=== PATIENT | male | born 1955 | race African-American/Black ===

== ENCOUNTER 2017-01-16 15:15 | Emergency (ER) | payer SELFPAY ==
[2017-01-16] MEDS ORDERED: LIDO:MAALOX:BENADRYL 1:1:1 180 ML BOTTLE. PO STA ×3 (16:02→16:57)
[2017-01-16 16:12] LABS: BASO # 0.1 x10^3/uL (0.0-0.2); BASO % 0 % (0-3); EOS % 1 % (0-3); HEMATOCRIT 48.3 % (39.0-53.0); LYMPH # 2.7 x10^3/uL (1.0-4.8); LYMPH % 13 % (24-48); MEAN CORPUSCULAR HEMOGLOBIN 27 pg (25-35); MEAN CORPUSCULAR HGB CONC 33 g/dL (31-37); MEAN CORPUSCULAR VOLUME 81 fL (79-100); MONO % 8 % (0-9); NEUT % 78 % (31-73); PLATELET COUNT 291 x10^3/uL (140-400); RED BLOOD COUNT 5.93 x10^6/uL (4.30-5.70); RED CELL DISTRIBUTION WIDTH 14.8 % (11.5-14.5); WHITE BLOOD COUNT 19.8 x10^3/uL (4.0-11.0)
--- NOTE | 2017-01-16 16:12 | PHYS DOC ---
Past Medical History Past Medical History: Hypertension Past Surgical History: No Surgical History Alcohol Use: None Drug Use: None Adult General Chief Complaint Chief Complaint: MULTIPLE COMPLAINTS HPI HPI Patient is a 61 year old male presents to the emergency department with complaints of Swallow. Patient reports for the last week he's had a sore throat. He states that it has progressed, to the point it is painful to speak. He states that he can swallow but it is just painful to swallow. No functional disabilities. Patient reports no headache, chest pain, no abdominal pain. Note he has had mild nausea without vomiting and 2 episodes of diarrhea in the last week. Patient reports he has not taken his blood pressure medicines for greater than 1 week because his throat hurts too much to swallow his blood pressure medicine. Review of Systems Review of Systems Constitutional: Denies fever or chills [] Eyes: Denies change in visual acuity, redness, or eye pain [] HENT: Sore throat with painful swallowing. Respiratory: Denies cough or shortness of breath [] Cardiovascular: No additional information not addressed in HPI [] GI: Denies abdominal pain, nausea, vomiting, bloody stools or diarrhea [] : Denies dysuria or hematuria [] Musculoskeletal: Denies back pain or joint pain [] Integument: Denies rash or skin lesions [] Neurologic: Denies headache, focal weakness or sensory changes [] Endocrine: Denies polyuria or polydipsia [] Current Medications Current Medications Current Medications Medications (Trade) Dose Ordered Sig/Tee Start Time Stop Time Status Last Admin Dose Admin Clindamycin Phosphate 50 ml @ 100 mls/hr 1X ONCE 01/16/17 17:30 01/16/17 17:59 DC 01/16/17 17:43 100 MLS/HR Dexamethasone Sodium Phosphate (Decadron) 4 mg 1X ONCE 01/16/17 16:15 01/16/17 16:16 DC 01/16/17 16:32 4 MG Hydralazine HCl (Apresoline Inj) 10 mg 1X ONCE 01/16/17 17:30 01/16/17 17:31 DC 01/16/17 17:42 10 MG Info (Do NOT chart on this entry -- for MONITORING) 1 each PRN DAILY PRN 01/16/17 16:30 01/18/17 16:29 Iohexol (Omnipaque 300 Mg/ml) 70 ml 1X ONCE 01/16/17 16:15 01/16/17 16:17 DC 01/16/17 16:15 70 ML Multi-Ingredient Mouthwash/Gargle (Magic Mouthwash) 10 ml STAT STAT 01/16/17 16:57 01/16/17 16:58 DC Sodium Chloride 1,000 ml @ 1,000 mls/hr 1X ONCE 01/16/17 16:45 01/16/17 17:44 DC 01/16/17 16:31 1,000 MLS/HR Allergies Allergies Allergies Coded Allergies Type Severity Reaction Last Updated Verified No Known Drug Allergies 03/19/13 No Physical Exam Physical Exam Constitutional: Well developed, well nourished, no acute distress, non-toxic appearance. [] HENT: Normocephalic, atraumatic, bilateral external ears normal, mucous membranes dry, posterior pharynx erythematous, uvula deviated. No exudate. Voice is muffled Eyes: PERRLA, EOMI, conjunctiva normal, no discharge. [] Neck: Normal range of motion, no tenderness, supple with anterior cervical lymphadenopathy, no meningeal signs, no stridor. [] Cardiovascular:Heart rate regular rhythm, no murmur [] Lungs & Thorax: Bilateral breath sounds clear to auscultation [] Abdomen: Bowel sounds normal, soft, no tenderness, no masses, no pulsatile masses. [] Skin: Warm, dry, no erythema, no rash. [] Back: No tenderness, no CVA tenderness. [] Extremities: No tenderness, no cyanosis, no clubbing, ROM intact, no edema. [] Neurologic: Alert and oriented X 3, normal motor function, normal sensory function, no focal deficits noted. [] Psychologic: Affect normal, judgement normal, mood normal. [] Current Patient Data Vital Signs Vital Signs Date Time Temp Pulse Resp B/P (MAP) Pulse Ox O2 Delivery O2 Flow Rate FiO2 01/16/17 17:42 87 233/106 01/16/17 15:45 98.5 20 95 Room Air 98.5 Lab Values Laboratory Tests Test 01/16/17 16:00 01/16/17 17:19 White Blood Count 19.8 x10^3/uL (4.0-11.0) H Red Blood Count 5.93 x10^6/uL (4.30-5.70) H Hemoglobin 16.0 g/dL (13.0-17.5) Hematocrit 48.3 % (39.0-53.0) Mean Corpuscular Volume 81 fL (79-100) Mean Corpuscular Hemoglobin 27 pg (25-35) Mean Corpuscular Hemoglobin Concent 33 g/dL (31-37) Red Cell Distribution Width 14.8 % (11.5-14.5) H Platelet Count 291 x10^3/uL (140-400) Neutrophils (%) (Auto) 78 % (31-73) H Lymphocytes (%) (Auto) 13 % (24-48) L Monocytes (%) (Auto) 8 % (0-9) Eosinophils (%) (Auto) 1 % (0-3) Basophils (%) (Auto) 0 % (0-3) Neutrophils # (Auto) 15.4 x10^3uL (1.8-7.7) H Lymphocytes # (Auto) 2.7 x10^3/uL (1.0-4.8) Monocytes # (Auto) 1.6 x10^3/uL (0.0-1.1) H Eosinophils # (Auto) 0.1 x10^3/uL (0.0-0.7) Basophils # (Auto) 0.1 x10^3/uL (0.0-0.2) Segmented Neutrophils % 73 % (35-66) H Band Neutrophils % 3 % (0-9) Lymphocytes % 15 % (24-48) L Atypical Lymphocytes % (Manual) 2 % (0-0) H Monocytes % 7 % (0-10) Platelet Estimate Adequate (ADEQUATE) Giant Platelets Few Sodium Level 137 mmol/L (136-145) Potassium Level 4.2 mmol/L (3.5-5.1) Chloride Level 100 mmol/L (98-107) Carbon Dioxide Level 25 mmol/L (21-32) Anion Gap 12 (6-14) Blood Urea Nitrogen 27 mg/dL (8-26) H Creatinine 1.3 mg/dL (0.7-1.3) Estimated GFR (Cockcroft-Gault) 67.5 BUN/Creatinine Ratio 21 (6-20) H Glucose Level 87 mg/dL (70-99) Calcium Level 9.6 mg/dL (8.5-10.1) Total Bilirubin 1.4 mg/dL (0.2-1.0) H Aspartate Amino Transferase (AST) 28 U/L (15-37) Alanine Aminotransferase (ALT) 40 U/L (16-63) Alkaline Phosphatase 111 U/L (46-116) Total Protein 10.0 g/dL (6.4-8.2) H Albumin 3.4 g/dL (3.4-5.0) Albumin/Globulin Ratio 0.5 (1.0-1.7) L Lactic Acid Level 1.1 mmol/L (0.4-2.0) Laboratory Tests 01/16/17 16:00 Laboratory Tests 01/16/17 16:00 EKG EKG [] Radiology/Procedures Radiology/Procedures [] Course & Med Decision Making Course & Med Decision Making Pertinent Labs and Imaging studies reviewed. (See chart for details) []1720: Discussed with , emergency medicine physician 1730: [facility] transfer line notified, awaiting callback from admitting hospitalist 1809: Patient accepted in transfer by Dr. Murdock, hospitalist. Pt to be admitted to ICU Abdomen with the patient and his . I have explained the patient's condition , diagnosis and plan for transfer to [facility] for ear nose and throat consult and treatment of his peritonsillar abscess. I've answered the patient and his 's questions and addressed their concerns. The patient and his have as good an understanding of the patient's diagnosis, condition and treatment plan as can be expected at this time. The patient's vital signs been stable. The patient's condition is stable and appropriate for transfer to [facility] by ambulance. Dragon Disclaimer Dragon Disclaimer This electronic medical record was generated, in whole or in part, using a voice recognition dictation system. Departure Departure Impression: Primary Impression: Peritonsillar abscess Disposition: 05 TRANSFER OTHER Condition: STABLE Referrals: NON,STAFF (PCP) JONH FERNANDEZ APRN Jan 16, 2017 16:12
[2017-01-16] MEDS ORDERED: IOHEXOL 300 MG/ML 75 ML VIAL IV ONE (16:15)
[2017-01-16] MEDS ORDERED: DEXAMETHASONE SOD PHOS 4 MG/ML VIAL IV ONE (16:15)
[2017-01-16] MEDS ORDERED: CONTRAST GIVEN MC PRN (16:30)
[2017-01-16] MEDS ORDERED: IV NORMAL SALINE 1000ML BAG 1,000 ML IV ONE (16:45)
[2017-01-16] MEDS ORDERED: hydrALAZINE 20 MG/ML VIAL. IVP ONE ×2 (16:45→17:30)
[2017-01-16 16:48] LABS: CALCIUM 9.6 mg/dL (8.5-10.1); CREATININE 1.3 mg/dL (0.7-1.3); GFR 67.5; POTASSIUM 4.2 mmol/L (3.5-5.1)
[2017-01-16 16:54] LABS: ALBUMIN 3.4 g/dL (3.4-5.0); ALBUMIN/GLOBULIN RATIO 0.5 (1.0-1.7); TOTAL BILIRUBIN 1.4 mg/dL (0.2-1.0)
[2017-01-16 17:13] LABS: PLT ESTIMATE ADEQUATE (ADEQUATE)
--- NOTE | 2017-01-16 17:20 | RAD ---
CT neck with intravenous contrast History: Severe throat pain for one week. Comparison: None. Technique: CT of the neck was performed after the administration of intravenous contrast, 70 mL Omnipaque-300. Exposure: One or more of the following individualized dose reduction techniques were utilized for this examination: 1. Automated exposure control 2. Adjustment of the mA and/or kV according to patient size 3. Use of iterative reconstruction technique Findings: There is a peripherally enhancing low-density fluid collection involving the left palatine tonsil and adjacent soft tissue, compatible with tonsillar/peritonsillar abscess. Low-density fluid component is estimated to measure 2.0 x 1.2 cm in axial dimension x 2.7 cm in craniocaudal dimension. The abscess appears to deviate the airway to the right. Multiple lymph nodes are seen within the neck, left larger than right. Lymph nodes measure up to 1.3 cm in short axis and are favored to be a reactive. Bilateral parotid submitted with glands appear symmetric. Major vessels of the neck enhance appropriately. Impression: 1. Left tonsillar/peritonsillar abscess estimated to measure 2.0 x 1.2 x 2.7 cm. 2. Abscess appears to deviate the airway to the right. There also is apparently narrowing of the airway secondary to the inflammation. 3. Mild lymphadenopathy, favored to be reactive. Electronically signed by: Raman Wilcox MD (01/16/2017 5:16 PM) [facility]
[2017-01-16] MEDS ORDERED: CLINDAMYCIN 600MG PREMIX 50 ML IV ONE (17:30)
[2017-01-16 19:04] VITALS: BP 181/115
[2017-01-17 10:31] LABS: NEGATIVE OBC STREP NEG; POSITIVE OBC STREP POS
== END 2017-01-16 19:54 | disposition short-term general hospital (02) ==
LOC: ER 15:15
DX: J36 Peritonsillar abscess (principal); I10 Essential (primary) hypertension
CPT/HCPCS: 36415; 70491; 80053; 83605; 85007; 85025; 87040; 87070; 87880; 96361; 96365; 96366; 96375; 96376; 99285; J0360; J1100; J3490; J7030; Q9967

== ENCOUNTER 2017-01-24 16:58 | Inpatient (IN) | payer SELFPAY ==
[~2017-01-24] VITALS: Ht 162.6 cm; Wt 80.1 kg
--- NOTE | 2017-01-24 17:41 | PHYS DOC ---
Past Medical History Past Medical History: Hypertension, Other Additional Past Medical Histor: tonsilitis Past Surgical History: No Surgical History Alcohol Use: None Drug Use: None Adult General Chief Complaint Chief Complaint: NAUSEA/VOMITING/DIARRHA HPI HPI Patient is a 61 year old male who presents with complaint of hiccups. Patient states that he has had symptoms off and on over the past week. Patient states that he typically will have them after he urinates and states that his hiccups last for approximately 2 hours. Patient states that the hiccups or forceful and have caused him become nauseous. Patient had a few episodes of vomiting with his symptoms. Patient states that he was recently admitted to [facility] where he was treated for a throat infection. The patient was discharged on dexamethasone, Augmentin, and metoprolol. Patient states that he has been taking his medications as prescribed. Patient denies any fevers. Review of Systems Review of Systems Constitutional: Denies fever or chills [] Eyes: Denies change in visual acuity, redness, or eye pain [] HENT: Denies nasal congestion or sore throat [] Respiratory: Headache, denies cough or shortness of breath [] Cardiovascular: Denies chest pain or edema[] GI: Nausea, vomiting, denies abdominal pain, bloody stools or diarrhea [] : Denies dysuria or hematuria [] Musculoskeletal: Denies back pain or joint pain [] Integument: Denies rash or skin lesions [] Neurologic: Denies headache, focal weakness or sensory changes [] Current Medications Current Medications Current Medications Medications (Trade) Dose Ordered Sig/Tee Start Time Stop Time Status Last Admin Dose Admin Hydralazine HCl (Apresoline Inj) 10 mg 1X ONCE 01/24/17 18:30 01/24/17 18:31 DC 01/24/17 18:40 10 MG Ondansetron HCl (Zofran) 4 mg 1X ONCE 01/24/17 20:30 01/24/17 20:31 DC 01/24/17 20:07 4 MG Prochlorperazine Edisylate (Compazine) 10 mg 1X ONCE 01/24/17 18:00 01/24/17 18:01 DC 01/24/17 18:03 10 MG Sodium Chloride 1,000 ml @ 1,000 mls/hr Q1H 01/24/17 18:00 01/24/17 18:59 DC 01/24/17 18:00 1,000 MLS/HR Allergies Allergies Allergies Coded Allergies Type Severity Reaction Last Updated Verified No Known Drug Allergies 03/19/13 No Physical Exam Physical Exam Constitutional: Alert, afebrile, active singultus. [] HENT: Normocephalic, atraumatic, bilateral external ears normal, oropharynx moist, no oral exudates, nose normal. [] Eyes: PERRLA, EOMI, conjunctiva normal, no discharge. [] Neck: Normal range of motion, no tenderness, supple, no stridor. [] Cardiovascular:Heart rate regular rhythm, no murmur [] Lungs & Thorax: Bilateral breath sounds clear to auscultation [] Abdomen: Bowel sounds normal, soft, no tenderness, no masses, no pulsatile masses. [] Skin: Warm, dry, no erythema, no rash. [] Back: No tenderness, no CVA tenderness. [] Extremities: No tenderness, no cyanosis, no clubbing, ROM intact, no edema. [] Neurologic: Alert and oriented X 3, normal motor function, normal sensory function, no focal deficits noted. [] Current Patient Data Vital Signs Vital Signs Date Time Temp Pulse Resp B/P (MAP) Pulse Ox O2 Delivery O2 Flow Rate FiO2 01/24/17 20:34 98 20 148/70 (96) 96 Room Air 01/24/17 17:26 98.6 98.6 Lab Values Laboratory Tests Test 01/24/17 18:00 01/24/17 20:08 White Blood Count 13.1 x10^3/uL (4.0-11.0) H Red Blood Count 6.21 x10^6/uL (4.30-5.70) H Hemoglobin 16.6 g/dL (13.0-17.5) Hematocrit 51.6 % (39.0-53.0) Mean Corpuscular Volume 83 fL (79-100) Mean Corpuscular Hemoglobin 27 pg (25-35) Mean Corpuscular Hemoglobin Concent 32 g/dL (31-37) Red Cell Distribution Width 14.9 % (11.5-14.5) H Platelet Count 239 x10^3/uL (140-400) Neutrophils (%) (Auto) 74 % (31-73) H Lymphocytes (%) (Auto) 15 % (24-48) L Monocytes (%) (Auto) 9 % (0-9) Eosinophils (%) (Auto) 1 % (0-3) Basophils (%) (Auto) 0 % (0-3) Neutrophils # (Auto) 9.7 x10^3uL (1.8-7.7) H Lymphocytes # (Auto) 2.0 x10^3/uL (1.0-4.8) Monocytes # (Auto) 1.2 x10^3/uL (0.0-1.1) H Eosinophils # (Auto) 0.1 x10^3/uL (0.0-0.7) Basophils # (Auto) 0.0 x10^3/uL (0.0-0.2) Sodium Level 138 mmol/L (136-145) Potassium Level 4.4 mmol/L (3.5-5.1) Chloride Level 101 mmol/L (98-107) Carbon Dioxide Level 27 mmol/L (21-32) Anion Gap 10 (6-14) Blood Urea Nitrogen 18 mg/dL (8-26) Creatinine 1.1 mg/dL (0.7-1.3) Estimated GFR (Cockcroft-Gault) 81.8 BUN/Creatinine Ratio 16 (6-20) Glucose Level 84 mg/dL (70-99) Calcium Level 8.9 mg/dL (8.5-10.1) Magnesium Level 2.6 mg/dL (1.8-2.4) H Total Bilirubin 1.2 mg/dL (0.2-1.0) H Aspartate Amino Transferase (AST) 33 U/L (15-37) Alanine Aminotransferase (ALT) 135 U/L (16-63) H Alkaline Phosphatase 79 U/L (46-116) Total Protein 7.8 g/dL (6.4-8.2) Albumin 3.0 g/dL (3.4-5.0) L Albumin/Globulin Ratio 0.6 (1.0-1.7) L Lipase 240 U/L (73-393) Urine Collection Type Unknown Urine Color Yellow Urine Clarity Clear Urine pH 6.0 Urine Specific [place] 1.010 Urine Protein Negative mg/dL (NEG-TRACE) Urine Glucose (UA) Negative mg/dL (NEG) Urine Ketones (Stick) 40 mg/dL (NEG) Urine Blood Negative (NEG) Urine Nitrite Negative (NEG) Urine Bilirubin Negative (NEG) Urine Urobilinogen Dipstick 0.2 mg/dL (0.2 mg/dL) Urine Leukocyte Esterase Trace (NEG) Urine RBC 0 /HPF (0-2) Urine WBC 1-4 /HPF (0-4) Urine Squamous Epithelial Cells None /LPF Urine Bacteria 0 /HPF (0-FEW) Urine Mucus Slight /LPF Urine Yeast Present /HPF Laboratory Tests 01/24/17 18:00 Laboratory Tests 01/24/17 18:00 EKG EKG Interpreted by me: Heart rate 80, sinus rhythm, leftward axis, no acute ST/T- wave abnormalities present[] Radiology/Procedures Radiology/Procedures Not performed[] Course & Med Decision Making Course & Med Decision Making Pertinent Labs and Imaging studies reviewed. (See chart for details) Patient was given IV fluids, Compazine, and Benadryl in the emergency department. Patient's hiccups are persistent at this time despite treatment. Patient also noted to have critically elevated blood pressure of 200 systolic. Patient was treated with IV hydralazine which decreased blood pressure to 175 systolic. The patient continues to have vomiting at this time which is not controlled. The patient will require admission to the hospital for further treatment. I spoke with Dr. Moore who accepted care patient in hospital. Dragon Disclaimer Dragon Disclaimer This electronic medical record was generated, in whole or in part, using a voice recognition dictation system. Departure Departure Impression: Primary Impression: Accelerated hypertension Additional Impressions: Intractable hiccups Vomiting Disposition: ADMITTED INPATIENT Admitting Physician: Elda Moore Condition: GUARDED Referrals: MAYLIN ROBERTSON MD (PCP) Problem Qualifiers Additional Impressions: Vomiting Vomiting type: unspecified Vomiting Intractability: intractable Nausea presence: with nausea Qualified Codes: R11.2 - Nausea with vomiting, unspecified SUNNY ANN MD Jan 24, 2017 17:41
[2017-01-24] MEDS ORDERED: hydrALAZINE 20 MG/ML VIAL. IVP ONE ×2 (18:00→18:30)
[2017-01-24] MEDS ORDERED: PROCHLORPERAZINE 10 MG/2 ML VIAL. IV ONE (18:00)
[2017-01-24] MEDS ORDERED: IV NORMAL SALINE 1000ML BAG 1,000 ML IV SCH (18:00)
[2017-01-24 18:27] LABS: BASO % 0 % (0-3); EOS % 1 % (0-3); HEMATOCRIT 51.6 % (39.0-53.0); HEMOGLOBIN 16.6 g/dL (13.0-17.5); LYMPH % 15 % (24-48); MEAN CORPUSCULAR HEMOGLOBIN 27 pg (25-35); MEAN CORPUSCULAR HGB CONC 32 g/dL (31-37); MEAN CORPUSCULAR VOLUME 83 fL (79-100); MONO % 9 % (0-9); NEUT % 74 % (31-73); PLATELET COUNT 239 x10^3/uL (140-400); RED BLOOD COUNT 6.21 x10^6/uL (4.30-5.70); RED CELL DISTRIBUTION WIDTH 14.9 % (11.5-14.5); WHITE BLOOD COUNT 13.1 x10^3/uL (4.0-11.0)
[2017-01-24 18:33] LABS: CALCIUM 8.9 mg/dL (8.5-10.1); CREATININE 1.1 mg/dL (0.7-1.3); GFR 81.8; POTASSIUM 4.4 mmol/L (3.5-5.1)
[2017-01-24 18:39] LABS: ALBUMIN/GLOBULIN RATIO 0.6 (1.0-1.7); MAGNESIUM 2.6 mg/dL (1.8-2.4); TOTAL BILIRUBIN 1.2 mg/dL (0.2-1.0); TOTAL PROTEIN 7.8 g/dL (6.4-8.2)
[2017-01-24 20:18] LABS: BILIRUBIN,URINE NEGATIVE (NEG); GLUCOSE,URINE NEGATIVE (NEG); NITRITE,URINE NEGATIVE (NEG); PROTEIN,URINE NEGATIVE (NEG-TRACE); UROBILINOGEN,URINE 0.2 mg/dL (0.2 mg/dL)
[2017-01-24] MEDS ORDERED: ONDANSETRON PF 4 MG/2 ML VIAL. IV ONE (20:30)
[2017-01-24 20:36] LABS: BACTERIA,URINE 0 /HPF (0-FEW); RBC,URINE 0 /HPF (0-2); YEAST,URINE PRESENT /HPF
[2017-01-24] MEDS ORDERED: ACETAMINOPHEN 325 MG TABLET. PO PRN (21:00)
[2017-01-24] MEDS ORDERED: ONDANSETRON PF 4 MG/2 ML VIAL. IV PRN (21:00)
[2017-01-24] MEDS ORDERED: hydrALAZINE 20 MG/ML VIAL. IVP PRN (21:00)
[2017-01-24 21:30] VITALS: BP 164/74
[2017-01-24] MEDS: IV NORMAL SALINE 1000ML BAG 1,000 ML IV SCH (21:57)
[2017-01-24] MEDS ORDERED: AMOX1TAB11 PO (22:07)
[2017-01-24] MEDS ORDERED: DEXA4TAB PO (22:07)
[2017-01-24] MEDS ORDERED: METO25TA4 PO (22:07)
[2017-01-24] MEDS: METOPROLOL TARTRATE 5 MG/5 ML VIAL. IVP SCH (22:48)
[2017-01-24] MEDS: PANTOPRAZOLE IV PUSH 40 MG VIAL. IVP SCH (22:48)
[2017-01-24] MEDS ORDERED: chlorproMAZINE 25 MG in IV DEXTROSE 5% 50 ML IV ONE (23:00)
[2017-01-24 23:59] VITALS: BP 123/61
[2017-01-25 03:26] VITALS: BP 141/74
[2017-01-25] MEDS: IV NORMAL SALINE 1000ML BAG 1,000 ML IV SCH ×2 (04:50→16:43)
[2017-01-25 05:12] LABS: BASO % 0 % (0-3); EOS % 1 % (0-3); HEMATOCRIT 45.5 % (39.0-53.0); LYMPH # 1.6 x10^3/uL (1.0-4.8); LYMPH % 15 % (24-48); MEAN CORPUSCULAR HEMOGLOBIN 27 pg (25-35); MEAN CORPUSCULAR HGB CONC 33 g/dL (31-37); MEAN CORPUSCULAR VOLUME 82 fL (79-100); MONO % 10 % (0-9); NEUT % 74 % (31-73); PLATELET COUNT 224 x10^3/uL (140-400); RED BLOOD COUNT 5.59 x10^6/uL (4.30-5.70); RED CELL DISTRIBUTION WIDTH 14.6 % (11.5-14.5); WHITE BLOOD COUNT 10.5 x10^3/uL (4.0-11.0)
[2017-01-25 05:49] LABS: CALCIUM 8.4 mg/dL (8.5-10.1); GFR 91.3; POTASSIUM 3.9 mmol/L (3.5-5.1)
[2017-01-25] MEDS: METOPROLOL TARTRATE 5 MG/5 ML VIAL. IVP SCH ×2 (06:00→15:18)
[2017-01-25 07:00] VITALS: BP 141/67
[2017-01-25] MEDS ORDERED: ACETAMINOPHEN 325 MG TABLET. PO PRN (10:15)
[2017-01-25] MEDS ORDERED: ONDANSETRON PF 4 MG/2 ML VIAL. IV PRN (10:15)
[2017-01-25] MEDS ORDERED: FAMOTIDINE 20 MG/2 ML VIAL IVP SCH (10:30)
[2017-01-25] MEDS: PANTOPRAZOLE IV PUSH 40 MG VIAL. IVP SCH (10:31)
--- NOTE | 2017-01-25 10:48 | EKG ---
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
--- NOTE | 2017-01-25 10:49 | PDOC1 ---
ANGELIQUE-CHELSEA TORO DIRECTOR OF ARCHIVES 01/25/17 1049: HISTORY AND PHYSICAL Chief Complaint Chief Complaint This 61 year old male has been admitted with a chief complaint of hypertensive urgency and intractable hiccups with vomiting. He was admitted to [facility] last for sore throat and underwent drainage peritonsillar abscess. He was placed on Augmentin at discharge on Friday. He developed hiccups on Friday and they were persistent to the point he would vomit /dry heave. He noted that the onset of the hiccups would be after ambulating to BR, voiding and upon returning to bed he would begin hiccupping. He was seen in the ED for evaluation. His BP on arrival was 208/113 and he was given hydralazine IV which decreased his BP to 175 systolic. He was given IV Benadryl and IV Compazine w/o improvement in the hiccups. IVF NS at 125cc/hr were given. After admitting to the medical surgical unit he was given Thorazine 25mg IV x 1 and his hiccups have resolved. He will be placed on PPI and consultation has been placed with GI for evaluation and treatment. If they are in agreement and no further testing is done in patient, Lloyd will be discharged home. Problem List Problems Medical Problems: (1) Vomiting Status: Acute Past Medical History PMH No pertinent h/o except HTN Cardiovascular: HTN Past Surgical History Past Surgical History: No pertinent history Past Family History Family History: Cancer, Hypertension Past Social History PSH , negative h/o tobacco, ETOH or illicit drug use Review of Symptoms Review of Symptoms A 14 point ROS was completed with the following noted as positive: per HPI Other systems reviewed and negative. Medications Medications reviewed and reconciled. Allergy Allergies Coded Allergies Type Severity Reaction Last Updated Verified No Known Drug Allergies 03/19/13 No Physical Exam Physical Exam General appearance - alert,well appearing, and in no distress Mental Status - alert, oriented to person, place, and time, affect appropriate to mood Head - normal Chest - clear to auscultation, no wheezes, rales or rhonchi, symmetric air entry Heart - S1 and S2 normal Abdomen - soft, nontender, nondistended, no masses or organomegaly Neurological - no acute focal neurological deficit noted. Musculoskeletal - no muscular tenderness noted Extremities - no pedal edema Skin - warm and dry VTE Prophylaxis Ordered VTE Prophylaxis Devices: Yes VTE Pharmacological Prophylaxi: No Assessment Labs Laboratory Tests Test 01/24/17 18:00 01/24/17 20:08 01/25/17 04:45 White Blood Count 13.1 x10^3/uL (4.0-11.0) 10.5 x10^3/uL (4.0-11.0) Red Blood Count 6.21 x10^6/uL (4.30-5.70) 5.59 x10^6/uL (4.30-5.70) Hemoglobin 16.6 g/dL (13.0-17.5) 15.0 g/dL (13.0-17.5) Hematocrit 51.6 % (39.0-53.0) 45.5 % (39.0-53.0) Mean Corpuscular Volume 83 fL (79-100) 82 fL (79-100) Mean Corpuscular Hemoglobin 27 pg (25-35) 27 pg (25-35) Mean Corpuscular Hemoglobin Concent 32 g/dL (31-37) 33 g/dL (31-37) Red Cell Distribution Width 14.9 % (11.5-14.5) 14.6 % (11.5-14.5) Platelet Count 239 x10^3/uL (140-400) 224 x10^3/uL (140-400) Neutrophils (%) (Auto) 74 % (31-73) 74 % (31-73) Lymphocytes (%) (Auto) 15 % (24-48) 15 % (24-48) Monocytes (%) (Auto) 9 % (0-9) 10 % (0-9) Eosinophils (%) (Auto) 1 % (0-3) 1 % (0-3) Basophils (%) (Auto) 0 % (0-3) 0 % (0-3) Neutrophils # (Auto) 9.7 x10^3uL (1.8-7.7) 7.7 x10^3uL (1.8-7.7) Lymphocytes # (Auto) 2.0 x10^3/uL (1.0-4.8) 1.6 x10^3/uL (1.0-4.8) Monocytes # (Auto) 1.2 x10^3/uL (0.0-1.1) 1.0 x10^3/uL (0.0-1.1) Eosinophils # (Auto) 0.1 x10^3/uL (0.0-0.7) 0.1 x10^3/uL (0.0-0.7) Basophils # (Auto) 0.0 x10^3/uL (0.0-0.2) 0.0 x10^3/uL (0.0-0.2) Sodium Level 138 mmol/L (136-145) 136 mmol/L (136-145) Potassium Level 4.4 mmol/L (3.5-5.1) 3.9 mmol/L (3.5-5.1) Chloride Level 101 mmol/L (98-107) 101 mmol/L (98-107) Carbon Dioxide Level 27 mmol/L (21-32) 24 mmol/L (21-32) Anion Gap 10 (6-14) 11 (6-14) Blood Urea Nitrogen 18 mg/dL (8-26) 15 mg/dL (8-26) Creatinine 1.1 mg/dL (0.7-1.3) 1.0 mg/dL (0.7-1.3) Estimated GFR (Cockcroft-Gault) 81.8 91.3 BUN/Creatinine Ratio 16 (6-20) Glucose Level 84 mg/dL (70-99) 100 mg/dL (70-99) Calcium Level 8.9 mg/dL (8.5-10.1) 8.4 mg/dL (8.5-10.1) Magnesium Level 2.6 mg/dL (1.8-2.4) Total Bilirubin 1.2 mg/dL (0.2-1.0) Aspartate Amino Transf (AST/SGOT) 33 U/L (15-37) Alanine Aminotransferase (ALT/SGPT) 135 U/L (16-63) Alkaline Phosphatase 79 U/L (46-116) Total Protein 7.8 g/dL (6.4-8.2) Albumin 3.0 g/dL (3.4-5.0) Albumin/Globulin Ratio 0.6 (1.0-1.7) Lipase 240 U/L (73-393) Urine Collection Type Unknown Urine Color Yellow Urine Clarity Clear Urine pH 6.0 Urine Specific [place] 1.010 Urine Protein Negative mg/dL (NEG-TRACE) Urine Glucose (UA) Negative mg/dL (NEG) Urine Ketones (Stick) 40 mg/dL (NEG) Urine Blood Negative (NEG) Urine Nitrite Negative (NEG) Urine Bilirubin Negative (NEG) Urine Urobilinogen Dipstick 0.2 mg/dL (0.2 mg/dL) Urine Leukocyte Esterase Trace (NEG) Urine RBC 0 /HPF (0-2) Urine WBC 1-4 /HPF (0-4) Urine Squamous Epithelial Cells None /LPF Urine Bacteria 0 /HPF (0-FEW) Urine Mucus Slight /LPF Urine Yeast Present /HPF Laboratory Tests Test 01/24/17 18:00 01/24/17 20:08 01/25/17 04:45 White Blood Count 13.1 x10^3/uL (4.0-11.0) 10.5 x10^3/uL (4.0-11.0) Red Blood Count 6.21 x10^6/uL (4.30-5.70) 5.59 x10^6/uL (4.30-5.70) Hemoglobin 16.6 g/dL (13.0-17.5) 15.0 g/dL (13.0-17.5) Hematocrit 51.6 % (39.0-53.0) 45.5 % (39.0-53.0) Mean Corpuscular Volume 83 fL (79-100) 82 fL (79-100) Mean Corpuscular Hemoglobin 27 pg (25-35) 27 pg (25-35) Mean Corpuscular Hemoglobin Concent 32 g/dL (31-37) 33 g/dL (31-37) Red Cell Distribution Width 14.9 % (11.5-14.5) 14.6 % (11.5-14.5) Platelet Count 239 x10^3/uL (140-400) 224 x10^3/uL (140-400) Neutrophils (%) (Auto) 74 % (31-73) 74 % (31-73) Lymphocytes (%) (Auto) 15 % (24-48) 15 % (24-48) Monocytes (%) (Auto) 9 % (0-9) 10 % (0-9) Eosinophils (%) (Auto) 1 % (0-3) 1 % (0-3) Basophils (%) (Auto) 0 % (0-3) 0 % (0-3) Neutrophils # (Auto) 9.7 x10^3uL (1.8-7.7) 7.7 x10^3uL (1.8-7.7) Lymphocytes # (Auto) 2.0 x10^3/uL (1.0-4.8) 1.6 x10^3/uL (1.0-4.8) Monocytes # (Auto) 1.2 x10^3/uL (0.0-1.1) 1.0 x10^3/uL (0.0-1.1) Eosinophils # (Auto) 0.1 x10^3/uL (0.0-0.7) 0.1 x10^3/uL (0.0-0.7) Basophils # (Auto) 0.0 x10^3/uL (0.0-0.2) 0.0 x10^3/uL (0.0-0.2) Sodium Level 138 mmol/L (136-145) 136 mmol/L (136-145) Potassium Level 4.4 mmol/L (3.5-5.1) 3.9 mmol/L (3.5-5.1) Chloride Level 101 mmol/L (98-107) 101 mmol/L (98-107) Carbon Dioxide Level 27 mmol/L (21-32) 24 mmol/L (21-32) Anion Gap 10 (6-14) 11 (6-14) Blood Urea Nitrogen 18 mg/dL (8-26) 15 mg/dL (8-26) Creatinine 1.1 mg/dL (0.7-1.3) 1.0 mg/dL (0.7-1.3) Estimated GFR (Cockcroft-Gault) 81.8 91.3 BUN/Creatinine Ratio 16 (6-20) Glucose Level 84 mg/dL (70-99) 100 mg/dL (70-99) Calcium Level 8.9 mg/dL (8.5-10.1) 8.4 mg/dL (8.5-10.1) Magnesium Level 2.6 mg/dL (1.8-2.4) Total Bilirubin 1.2 mg/dL (0.2-1.0) Aspartate Amino Transf (AST/SGOT) 33 U/L (15-37) Alanine Aminotransferase (ALT/SGPT) 135 U/L (16-63) Alkaline Phosphatase 79 U/L (46-116) Total Protein 7.8 g/dL (6.4-8.2) Albumin 3.0 g/dL (3.4-5.0) Albumin/Globulin Ratio 0.6 (1.0-1.7) Lipase 240 U/L (73-393) Urine Collection Type Unknown Urine Color Yellow Urine Clarity Clear Urine pH 6.0 Urine Specific [place] 1.010 Urine Protein Negative mg/dL (NEG-TRACE) Urine Glucose (UA) Negative mg/dL (NEG) Urine Ketones (Stick) 40 mg/dL (NEG) Urine Blood Negative (NEG) Urine Nitrite Negative (NEG) Urine Bilirubin Negative (NEG) Urine Urobilinogen Dipstick 0.2 mg/dL (0.2 mg/dL) Urine Leukocyte Esterase Trace (NEG) Urine RBC 0 /HPF (0-2) Urine WBC 1-4 /HPF (0-4) Urine Squamous Epithelial Cells None /LPF Urine Bacteria 0 /HPF (0-FEW) Urine Mucus Slight /LPF Urine Yeast Present /HPF Plan Plan FINAL DIAGNOSIS: 1. hypertensive urgency 2. intractable hiccups 3. vomiting r/t #2 4. recent peritonsillar abscess drainage [facility] 5. leukocytosis with recent dexamethasone po 6. CKD II 7. hypermagnesemia PLAN: HTN - increase metoprolol - improved hiccups - improved with thorazine -plan DC Thorazine 25mg q 6 hours prn -begin PPI when ok to take po -GI consult peritonsillar abscess - complete antibiotic therapy as ordered post [facility] admission hypermagnesemia - eval out patient For more details regarding further plans, please refer to the orders. Will plan DC home later today after diet advanced and GI in agreement. Please see DC orders. SHILOH FRIEND MD 01/25/17 1113: HISTORY AND PHYSICAL Plan Plan Throat no swelling,redness. Hiccups for one week started after discharge from [facility]. Hiccups responding to Chlorpromazine- none this AM. Advance diet. see in 5 days. The patient was seen and examined by me. Chart reviewed and plan of care formulated. Discussed with, reviewed and agree with LABORATORY CHEMIST's notes, plan of care and orders with modifications as necessary. For more details regarding further plans, please refer to the orders. CHELSEA DAVIS APRN Jan 25, 2017 10:49 SHILOH FRIEND MD Jan 25, 2017 11:13
--- NOTE | 2017-01-25 10:50 | DISCH ---
DISCHARGE INSTRUCTIONS Condition on Discharge Condition on Discharge: Stable Activity After Discharge Activity Instructions for Disc: Activity as tolerated Diet after Discharge Diet after Discharge: Cardiac (ARETHA ) Follow-Up Follow up with: Dr. Velazquez in 5 days. CHELSEA DAVIS APRN Jan 25, 2017 10:50
[2017-01-25] MEDS ORDERED: CHLO25TA4 PO (10:53)
[2017-01-25] MEDS ORDERED: PANT40TA3 PO (10:53)
[2017-01-25] MEDS ORDERED: METO50TA2 PO (10:53)
[2017-01-25 11:00] VITALS: BP 169/95
--- NOTE | 2017-01-25 14:41 | PDOC2 ---
CONSULT Date of Consult Date of Consult DATE: 01/25/17 TIME: 14:40 Reason for Consult Reason for Consult: Hiccups Past Medical History Cardiovascular: HTN Past Surgical History Past Surgical History: No pertinent history Family History Family History: Cancer, Hypertension Current Problem List Problem List Problems Medical Problems: (1) Vomiting Status: Acute Current Medications Current Medications Current Medications Sodium Chloride 1,000 ml @ 1,000 mls/hr Q1H IV Last administered on 18:00; Start 01/24/17 at 18:00; Stop 01/24/17 at 18:59; Status DC Prochlorperazine Edisylate (Compazine) 10 mg 1X ONCE IV Last administered on 01/24/17 18:03; Start 01/24/17 at 18:00; Stop 01/24/17 at 18:01; Status DC Hydralazine HCl (Apresoline Inj) 10 mg 1X ONCE IVP Last administered on 18:04; Start 01/24/17 at 18:00; Stop 01/24/17 at 18:01; Status DC Hydralazine HCl (Apresoline Inj) 10 mg 1X ONCE IVP Last administered on 18:40; Start 01/24/17 at 18:30; Stop 01/24/17 at 18:31; Status DC Ondansetron HCl (Zofran) 4 mg 1X ONCE IV Last administered on 01/24/17 20:07 ; Start 01/24/17 at 20:30; Stop 01/24/17 at 20:31; Status DC Ondansetron HCl (Zofran) 4 mg PRN Q8HRS PRN IV NAUSEA/VOMITING; Start at 21:00; Stop 01/25/17 at 10:19; Status DC Sodium Chloride 1,000 ml @ 75 mls/hr [id number] IV Last administered on 04:50; Start 01/24/17 at 20:50; Stop 01/25/17 at 20:49 Acetaminophen (Tylenol) 650 mg PRN Q4HRS PRN PO FEVER; Start 01/24/17 at 21:00 ; Stop 01/25/17 at 10:19; Status DC Hydralazine HCl (Apresoline Inj) 10 mg PRN Q4HRS PRN IVP ELEVATED BP, SEE COMMENTS; Start 01/24/17 at 21:00 Metoprolol Tartrate (Lopressor) 5 mg Q6HRS IVP Last administered on 01/25/17 06:00; Start 01/24/17 at 22:30 Chlorpromazine HCl 25 mg/Dextrose 51 ml @ 100 mls/hr 1X ONCE IV Last administered on 01/25/17 02:40; Start 01/24/17 at 23:00; Stop 01/24/17 at 23 :30; Status DC Pantoprazole Sodium (Protonix Vial) 40 mg DAILYAC IVP Last administered on 22:48; Start 01/24/17 at 22:30; Stop 01/25/17 at 10:21; Status DC Ondansetron HCl (Zofran) 4 mg PRN Q8HRS PRN IV NAUSEA/VOMITING; Start at 10:15 Acetaminophen (Tylenol) 650 mg PRN Q4HRS PRN PO FEVER; Start 01/25/17 at 10:15 Famotidine (Pepcid) 20 mg BID IVP Last administered on 01/25/17 10:37; Start 01/25/17 at 10:30 Active Scripts Active Chlorpromazine Hcl 25 Mg Tablet 25 Mg PO PRN Q6HRS PRN Protonix (Pantoprazole Sodium) 40 Mg Tablet.dr 1 Tab PO DAILY Metoprolol Tartrate 50 Mg Tablet 1 Tab PO BID Reported Amox Tr-K Clv 875-125 Mg Tab (Amoxicillin/Potassium Clav) 1 Each Tablet 1 Tab PO BID 10 Days Allergies Allergies: Coded Allergies: No Known Drug Allergies (Unverified , 03/19/13) Vitals VITALS Vital Signs Date Time Temp Pulse Resp B/P (MAP) Pulse Ox O2 Delivery O2 Flow Rate FiO2 01/25/17 11:00 98.3 81 20 169/95 (119) 99 Room Air 98.3 Labs Labs Laboratory Tests Test 01/24/17 18:00 01/24/17 20:08 01/25/17 04:45 White Blood Count 13.1 x10^3/uL (4.0-11.0) 10.5 x10^3/uL (4.0-11.0) Red Blood Count 6.21 x10^6/uL (4.30-5.70) 5.59 x10^6/uL (4.30-5.70) Hemoglobin 16.6 g/dL (13.0-17.5) 15.0 g/dL (13.0-17.5) Hematocrit 51.6 % (39.0-53.0) 45.5 % (39.0-53.0) Mean Corpuscular Volume 83 fL (79-100) 82 fL (79-100) Mean Corpuscular Hemoglobin 27 pg (25-35) 27 pg (25-35) Mean Corpuscular Hemoglobin Concent 32 g/dL (31-37) 33 g/dL (31-37) Red Cell Distribution Width 14.9 % (11.5-14.5) 14.6 % (11.5-14.5) Platelet Count 239 x10^3/uL (140-400) 224 x10^3/uL (140-400) Neutrophils (%) (Auto) 74 % (31-73) 74 % (31-73) Lymphocytes (%) (Auto) 15 % (24-48) 15 % (24-48) Monocytes (%) (Auto) 9 % (0-9) 10 % (0-9) Eosinophils (%) (Auto) 1 % (0-3) 1 % (0-3) Basophils (%) (Auto) 0 % (0-3) 0 % (0-3) Neutrophils # (Auto) 9.7 x10^3uL (1.8-7.7) 7.7 x10^3uL (1.8-7.7) Lymphocytes # (Auto) 2.0 x10^3/uL (1.0-4.8) 1.6 x10^3/uL (1.0-4.8) Monocytes # (Auto) 1.2 x10^3/uL (0.0-1.1) 1.0 x10^3/uL (0.0-1.1) Eosinophils # (Auto) 0.1 x10^3/uL (0.0-0.7) 0.1 x10^3/uL (0.0-0.7) Basophils # (Auto) 0.0 x10^3/uL (0.0-0.2) 0.0 x10^3/uL (0.0-0.2) Sodium Level 138 mmol/L (136-145) 136 mmol/L (136-145) Potassium Level 4.4 mmol/L (3.5-5.1) 3.9 mmol/L (3.5-5.1) Chloride Level 101 mmol/L (98-107) 101 mmol/L (98-107) Carbon Dioxide Level 27 mmol/L (21-32) 24 mmol/L (21-32) Anion Gap 10 (6-14) 11 (6-14) Blood Urea Nitrogen 18 mg/dL (8-26) 15 mg/dL (8-26) Creatinine 1.1 mg/dL (0.7-1.3) 1.0 mg/dL (0.7-1.3) Estimated GFR (Cockcroft-Gault) 81.8 91.3 BUN/Creatinine Ratio 16 (6-20) Glucose Level 84 mg/dL (70-99) 100 mg/dL (70-99) Calcium Level 8.9 mg/dL (8.5-10.1) 8.4 mg/dL (8.5-10.1) Magnesium Level 2.6 mg/dL (1.8-2.4) Total Bilirubin 1.2 mg/dL (0.2-1.0) Aspartate Amino Transf (AST/SGOT) 33 U/L (15-37) Alanine Aminotransferase (ALT/SGPT) 135 U/L (16-63) Alkaline Phosphatase 79 U/L (46-116) Total Protein 7.8 g/dL (6.4-8.2) Albumin 3.0 g/dL (3.4-5.0) Albumin/Globulin Ratio 0.6 (1.0-1.7) Lipase 240 U/L (73-393) Urine Collection Type Unknown Urine Color Yellow Urine Clarity Clear Urine pH 6.0 Urine Specific [place] 1.010 Urine Protein Negative mg/dL (NEG-TRACE) Urine Glucose (UA) Negative mg/dL (NEG) Urine Ketones (Stick) 40 mg/dL (NEG) Urine Blood Negative (NEG) Urine Nitrite Negative (NEG) Urine Bilirubin Negative (NEG) Urine Urobilinogen Dipstick 0.2 mg/dL (0.2 mg/dL) Urine Leukocyte Esterase Trace (NEG) Urine RBC 0 /HPF (0-2) Urine WBC 1-4 /HPF (0-4) Urine Squamous Epithelial Cells None /LPF Urine Bacteria 0 /HPF (0-FEW) Urine Mucus Slight /LPF Urine Yeast Present /HPF Laboratory Tests Test 01/24/17 18:00 01/24/17 20:08 01/25/17 04:45 White Blood Count 13.1 x10^3/uL (4.0-11.0) 10.5 x10^3/uL (4.0-11.0) Red Blood Count 6.21 x10^6/uL (4.30-5.70) 5.59 x10^6/uL (4.30-5.70) Hemoglobin 16.6 g/dL (13.0-17.5) 15.0 g/dL (13.0-17.5) Hematocrit 51.6 % (39.0-53.0) 45.5 % (39.0-53.0) Mean Corpuscular Volume 83 fL (79-100) 82 fL (79-100) Mean Corpuscular Hemoglobin 27 pg (25-35) 27 pg (25-35) Mean Corpuscular Hemoglobin Concent 32 g/dL (31-37) 33 g/dL (31-37) Red Cell Distribution Width 14.9 % (11.5-14.5) 14.6 % (11.5-14.5) Platelet Count 239 x10^3/uL (140-400) 224 x10^3/uL (140-400) Neutrophils (%) (Auto) 74 % (31-73) 74 % (31-73) Lymphocytes (%) (Auto) 15 % (24-48) 15 % (24-48) Monocytes (%) (Auto) 9 % (0-9) 10 % (0-9) Eosinophils (%) (Auto) 1 % (0-3) 1 % (0-3) Basophils (%) (Auto) 0 % (0-3) 0 % (0-3) Neutrophils # (Auto) 9.7 x10^3uL (1.8-7.7) 7.7 x10^3uL (1.8-7.7) Lymphocytes # (Auto) 2.0 x10^3/uL (1.0-4.8) 1.6 x10^3/uL (1.0-4.8) Monocytes # (Auto) 1.2 x10^3/uL (0.0-1.1) 1.0 x10^3/uL (0.0-1.1) Eosinophils # (Auto) 0.1 x10^3/uL (0.0-0.7) 0.1 x10^3/uL (0.0-0.7) Basophils # (Auto) 0.0 x10^3/uL (0.0-0.2) 0.0 x10^3/uL (0.0-0.2) Sodium Level 138 mmol/L (136-145) 136 mmol/L (136-145) Potassium Level 4.4 mmol/L (3.5-5.1) 3.9 mmol/L (3.5-5.1) Chloride Level 101 mmol/L (98-107) 101 mmol/L (98-107) Carbon Dioxide Level 27 mmol/L (21-32) 24 mmol/L (21-32) Anion Gap 10 (6-14) 11 (6-14) Blood Urea Nitrogen 18 mg/dL (8-26) 15 mg/dL (8-26) Creatinine 1.1 mg/dL (0.7-1.3) 1.0 mg/dL (0.7-1.3) Estimated GFR (Cockcroft-Gault) 81.8 91.3 BUN/Creatinine Ratio 16 (6-20) Glucose Level 84 mg/dL (70-99) 100 mg/dL (70-99) Calcium Level 8.9 mg/dL (8.5-10.1) 8.4 mg/dL (8.5-10.1) Magnesium Level 2.6 mg/dL (1.8-2.4) Total Bilirubin 1.2 mg/dL (0.2-1.0) Aspartate Amino Transf (AST/SGOT) 33 U/L (15-37) Alanine Aminotransferase (ALT/SGPT) 135 U/L (16-63) Alkaline Phosphatase 79 U/L (46-116) Total Protein 7.8 g/dL (6.4-8.2) Albumin 3.0 g/dL (3.4-5.0) Albumin/Globulin Ratio 0.6 (1.0-1.7) Lipase 240 U/L (73-393) Urine Collection Type Unknown Urine Color Yellow Urine Clarity Clear Urine pH 6.0 Urine Specific [place] 1.010 Urine Protein Negative mg/dL (NEG-TRACE) Urine Glucose (UA) Negative mg/dL (NEG) Urine Ketones (Stick) 40 mg/dL (NEG) Urine Blood Negative (NEG) Urine Nitrite Negative (NEG) Urine Bilirubin Negative (NEG) Urine Urobilinogen Dipstick 0.2 mg/dL (0.2 mg/dL) Urine Leukocyte Esterase Trace (NEG) Urine RBC 0 /HPF (0-2) Urine WBC 1-4 /HPF (0-4) Urine Squamous Epithelial Cells None /LPF Urine Bacteria 0 /HPF (0-FEW) Urine Mucus Slight /LPF Urine Yeast Present /HPF Assessment/Plan Assessment/Plan Hiccups- with improved dyspahgia s/p tonsilar abscess drainage Plan po thorazine as o/p Full note dictated DULCE CASTELAN MD Jan 25, 2017 14:41
[2017-01-25 15:00] VITALS: BP 191/99
[2017-01-25] MEDS ORDERED: METOPROLOL TARTRATE 5 MG/5 ML VIAL. IVP ONE (16:30)
[2017-01-25] MEDS ORDERED: METOPROLOL TART IMMED RELEASE 50 MG TABLET. PO ONE (16:30)
[2017-01-25 18:35] VITALS: BP 156/86
--- NOTE | 2017-01-27 12:55 | CONS ---
DATE OF CONSULTATION: 01/25/2017 REASON FOR CONSULTATION: Hiccups and dysphagia, status post tonsillar abscess drainage. HISTORY OF PRESENT ILLNESS: A 61-year-old -[place] male with past medical history significant for hypertension, tonsillitis, status post drainage of abscess. He was admitted to [facility] with hiccups after micturition. The patient states that he becomes nauseated, feels warm, and hiccups for approximately 2 hours. He has been doing this for approximately a week. He was appropriately started on Thorazine late yesterday and has had cessation of the hiccups. He is tolerating p.o., and wishes to be released at this time. PAST MEDICAL HISTORY: Hypertension. History of tonsillar abscess, status post drainage. ALLERGIES: None. MEDICATIONS: Include Pepcid, Lopressor, hydralazine. SOCIAL HISTORY: Nonsmoker, nondrinker. FAMILY HISTORY: Noncontributory. REVIEW OF SYSTEMS: Per records. PHYSICAL EXAMINATION: VITAL SIGNS: Temperature is 98.3, pulse 81, respirations 20, blood pressure is 169/95. HEENT: Normocephalic and atraumatic head. Pupils and extraocular movements were not tested. Sclerae anicteric. NECK: Supple. LUNGS: Clear. NECK: Supple, with previous tonsillar ____. CARDIOVASCULAR: Reveals S1, S2, without S3, S4 or appreciable murmur. ABDOMEN: Soft abdomen, normal bowel sounds, without appreciable hepatosplenomegaly. EXTREMITIES: Reveals no cyanosis, clubbing, edema. LABORATORY STUDIES: Hemoglobin 15; hematocrit 45; white count 10.5; platelet count is 224,000. Sodium 136, potassium ____ chloride 101, bicarbonate 24, BUN 15, creatinine 1.0, glucose is 100, calcium 8.4, magnesium 2.6, total bilirubin 1.2, AST of 33, ALT 135, alkaline phosphatase of 79. Total protein 7.8, albumin 3.9, lipase 240. IMPRESSION: Hiccups, status post peritonsillar abscess drainage, with improved dysphagia. Recommend ____ Thorazine. Followup as needed as an outpatient. DULCE CASTELAN MD DR: BRODIE/marylou JOB#: [id number] / [id number] SHILOH Ferraro MD
== END 2017-01-25 18:00 | disposition home or self-care (01) | DRG 305 ==
LOC: ER 16:58 → 6 SOUTH 20:19
PROVIDERS: ADMIT Internal Medicine; ATTEND Internal Medicine
DX: I16.0 Hypertensive urgency (principal); R06.6 Hiccough; I10 Essential (primary) hypertension; Z82.49 Family history of ischemic heart disease and other diseases of the circulatory system
CPT/HCPCS: 36415; 80048; 80053; 81001; 83690; 83735; 85025; 87086; 93005; 96361; 96374; 96375; 96376; C9113; J0360; J0780; J2405; J3230; J3490; J7030; S0028; 99285-25

== ENCOUNTER 2018-05-21 03:45 | Emergency (ER) | payer OTHER ==
[~2018-05-21] VITALS: Ht 162.6 cm; Wt 81.6 kg
[~2018-05-21 03:45] MED LIST: AMOX1TAB11 PO; CHLO25TA4 PO; DEXA4TAB PO; METO25TA4 PO; METO50TA6 PO; PANT40TA3 PO
[2018-05-21] MEDS ORDERED: METOCLOPRAMIDE HCL 10 MG/2 ML VIAL. IV ONE (04:00)
[2018-05-21] MEDS ORDERED: IV NORMAL SALINE 1000ML BAG 1,000 ML IV ONE (04:00)
[2018-05-21] MEDS ORDERED: DEXAMETHASONE SOD PHOS 20 MG/5 ML VIAL. IV ONE (04:00)
[2018-05-21] MEDS ORDERED: KETOROLAC 15 MG/ML VIAL. IV ONE (04:00)
[2018-05-21] MEDS ORDERED: diphenhydrAMINE 50 MG/ML VIAL IVP ONE (04:00)
[2018-05-21] MEDS ORDERED: cloNIDine HCL 0.1 MG TABLET PO ONE (04:15)
[2018-05-21] MEDS ORDERED: LABETALOL 20 MG/4 ML DISP.SYRIN. IVP ONE (04:15)
[2018-05-21 04:51] LABS: BASO % 0 % (0-3); EOS # 0.1 x10^3/uL (0.0-0.7); EOS % 0 % (0-3); HEMATOCRIT 49.7 % (39.0-53.0); HEMOGLOBIN 16.2 g/dL (13.0-17.5); LYMPH # 1.1 x10^3/uL (1.0-4.8); LYMPH % 9 % (24-48); MEAN CORPUSCULAR HEMOGLOBIN 26 pg (25-35); MEAN CORPUSCULAR HGB CONC 33 g/dL (31-37); MEAN CORPUSCULAR VOLUME 81 fL (79-100); MONO # 0.7 x10^3/uL (0.0-1.1); MONO % 5 % (0-9); NEUT # 10.3 x10^3uL (1.8-7.7); NEUT % 85 % (31-73); PLATELET COUNT 171 x10^3/uL (140-400); RED BLOOD COUNT 6.16 x10^6/uL (4.30-5.70); RED CELL DISTRIBUTION WIDTH 15.6 % (11.5-14.5); WHITE BLOOD COUNT 12.1 x10^3/uL (4.0-11.0)
[2018-05-21 05:05] LABS: CREATININE 1.2 mg/dL (0.7-1.3); GFR 73.8; POTASSIUM 4.2 mmol/L (3.5-5.1)
--- NOTE | 2018-05-21 05:08 | PHYS DOC ---
Past Medical History Past Medical History: Hypertension, Other Additional Past Medical Histor: tonsilitis Past Surgical History: No Surgical History Additional Information: Nonsmoker Alcohol Use: None Drug Use: None Adult General Chief Complaint Chief Complaint: HEADACHE HPI HPI 62-year-old male presents with report of headache that started at 1500 yesterday. Patient also with associated dizziness and nausea. Patient denies known trauma. Denies fever or chills. Denies neck pain. Patient does report past medical history of high blood pressure for which he is supposed to be taking blood pressure medication. Patient reports he has not been compliant with his medication for at least a year. Denies other complaint. Review of Systems Review of Systems Constitutional: Denies fever or chills [] Eyes: Denies change in visual acuity, redness, or eye pain [] HENT: Denies nasal congestion or sore throat [] Respiratory: Denies cough or shortness of breath [] Cardiovascular: Denies chest pain or palpitations GI: Denies abdominal pain, nausea, vomiting, or diarrhea [] : Denies dysuria or hematuria [] Musculoskeletal: Denies back pain or joint pain [] Integument: Denies rash or skin lesions [] Neurologic: Reports headache and dizziness; denies focal weakness or sensory changes [] Complete systems were reviewed and found to be within normal limits, except as documented in this note. Current Medications Current Medications Current Medications Medications (Trade) Dose Ordered Sig/Tee Start Time Stop Time Status Last Admin Dose Admin Clonidine HCl (Catapres) 0.1 mg 1X ONCE 05/21/18 04:15 05/21/18 04:16 DC 05/21/18 04:14 0.1 MG Dexamethasone Sodium Phosphate (Decadron) 10 mg 1X ONCE 05/21/18 04:00 05/21/18 04:01 DC 05/21/18 04:15 10 MG Diphenhydramine HCl (Benadryl) 25 mg 1X ONCE 05/21/18 04:00 05/21/18 04:01 DC 05/21/18 04:15 25 MG Ketorolac Tromethamine (Toradol 15mg Vial) 15 mg 1X ONCE 05/21/18 04:00 05/21/18 04:01 DC 05/21/18 04:15 15 MG Labetalol HCl (Normodyne Iv Push) 10 mg 1X ONCE 05/21/18 04:15 05/21/18 04:16 DC 05/21/18 04:36 10 MG Metoclopramide HCl (Reglan Vial) 10 mg 1X ONCE 05/21/18 04:00 05/21/18 04:01 DC 05/21/18 04:15 10 MG Sodium Chloride 1,000 ml @ 1,000 mls/hr 1X ONCE 05/21/18 04:00 05/21/18 04:59 DC 05/21/18 04:16 1,000 MLS/HR Allergies Allergies Allergies Coded Allergies Type Severity Reaction Last Updated Verified No Known Drug Allergies 03/19/13 No Physical Exam Physical Exam Constitutional: Well developed, well nourished, no acute distress, non-toxic appearance. [] HENT: Normocephalic, atraumatic, oropharynx moist Eyes: PERRL, EOMI, conjunctiva normal, no discharge. [] Neck: Normal range of motion, no tenderness, supple; no meningeal signs Cardiovascular: Heart rate regular rhythm, no murmur [] Lungs & Thorax: Bilateral breath sounds clear to auscultation [] Abdomen: Soft, no tenderness Skin: Warm, dry, no erythema, no rash. [] Extremities: No tenderness, ROM intact, no edema. [] Neurologic: Alert and oriented X 3, normal motor function, normal sensory function, no focal deficits noted. [] Psychologic: Affect normal, judgement normal, mood normal. [] Current Patient Data Vital Signs Vital Signs Date Time Temp Pulse Resp B/P (MAP) Pulse Ox O2 Delivery O2 Flow Rate FiO2 05/21/18 04:36 84 209/98 05/21/18 04:00 29 95 Room Air 05/21/18 03:55 98.0 98.0 Lab Values Laboratory Tests Test 05/21/18 04:40 White Blood Count 12.1 x10^3/uL (4.0-11.0) H Red Blood Count 6.16 x10^6/uL (4.30-5.70) H Hemoglobin 16.2 g/dL (13.0-17.5) Hematocrit 49.7 % (39.0-53.0) Mean Corpuscular Volume 81 fL (79-100) Mean Corpuscular Hemoglobin 26 pg (25-35) Mean Corpuscular Hemoglobin Concent 33 g/dL (31-37) Red Cell Distribution Width 15.6 % (11.5-14.5) H Platelet Count 171 x10^3/uL (140-400) Neutrophils (%) (Auto) 85 % (31-73) H Lymphocytes (%) (Auto) 9 % (24-48) L Monocytes (%) (Auto) 5 % (0-9) Eosinophils (%) (Auto) 0 % (0-3) Basophils (%) (Auto) 0 % (0-3) Neutrophils # (Auto) 10.3 x10^3uL (1.8-7.7) H Lymphocytes # (Auto) 1.1 x10^3/uL (1.0-4.8) Monocytes # (Auto) 0.7 x10^3/uL (0.0-1.1) Eosinophils # (Auto) 0.1 x10^3/uL (0.0-0.7) Basophils # (Auto) 0.0 x10^3/uL (0.0-0.2) Sodium Level 136 mmol/L (136-145) Potassium Level 4.2 mmol/L (3.5-5.1) Chloride Level 101 mmol/L (98-107) Carbon Dioxide Level 24 mmol/L (21-32) Anion Gap 11 (6-14) Blood Urea Nitrogen 14 mg/dL (8-26) Creatinine 1.2 mg/dL (0.7-1.3) Estimated GFR (Cockcroft-Gault) 73.8 BUN/Creatinine Ratio 12 (6-20) Glucose Level 156 mg/dL (70-99) H Calcium Level 9.0 mg/dL (8.5-10.1) Magnesium Level 2.3 mg/dL (1.8-2.4) Total Bilirubin 0.8 mg/dL (0.2-1.0) Aspartate Amino Transferase (AST) 28 U/L (15-37) Alanine Aminotransferase (ALT) 27 U/L (16-63) Alkaline Phosphatase 71 U/L (46-116) Creatine Kinase 567 U/L (39-308) H Creatine Kinase MB (Mass) 4.9 ng/mL (0.0-3.6) H Creatine Kinase MB Relative Index 0.9 % (0-4) Troponin I Quantitative < 0.017 ng/mL (0.000-0.055) Total Protein 7.9 g/dL (6.4-8.2) Albumin 3.5 g/dL (3.4-5.0) Albumin/Globulin Ratio 0.8 (1.0-1.7) L Laboratory Tests 05/21/18 04:40 Laboratory Tests 05/21/18 04:40 EKG EKG @0401 NSR at 79bpm, NO ST elevation, nonspecific t wave inversion to I and aVL Radiology/Procedures Radiology/Procedures PROCEDURE: CT HEAD WO CONTRAST INDICATION: headache, dizziness COMPARISON: None. TECHNIQUE: Axial CT images obtained through the head without intravenous contrast. One or more of the following individualized dose reduction techniques were utilized for this examination: 1. Automated exposure control; 2. Adjustment of the mA and/or kV according to patient size; 3. Use of iterative reconstruction technique. FINDINGS: No intracranial hemorrhage. No midline shift. Basal cisterns patent. Ventricles and sulci are unremarkable. No acute osseous abnormality. Orbits and paranasal sinuses unremarkable. IMPRESSION: 1. No acute intracranial hemorrhage. Electronically signed by: Jacky Baeza MD (05/21/2018 5:17 AM) [facility] Course & Med Decision Making Course & Med Decision Making Pertinent Labs and Imaging studies reviewed. (See chart for details) Patient presents with report of headache with associated dizziness and nausea. Denies known trauma. Patient neurologically intact. NIH SS 0. Patient noted to have significantly elevated blood pressure. Reports noncompliance with blood pressure medication. Blood pressure addressed with interval improvement. CT head without acute process. EKG stable. Labs obtained and posted to chart. No signs of end-organ damage appreciated. Patient stable for discharge with outpatient follow-up with PCP. Discussed findings and plan with patient and family, who acknowledge understanding and agreement. Dragon Disclaimer Dragon Disclaimer This electronic medical record was generated, in whole or in part, using a voice recognition dictation system. Departure Departure Impression: Primary Impression: Headache Additional Impressions: Dizziness Hypertensive urgency Disposition: 01 HOME, SELF-CARE Condition: IMPROVED Referrals: MAYLIN ROBERTSON MD (PCP) Patient Instructions: Dizziness, [id number], Headache, FAQs, Hypertension, [id number] Scripts Clonidine Hcl (CLONIDINE HCL) 0.1 Mg Tablet 0.1 MG PO BID PRN for ELEVATED BP, SEE COMMENTS, #14 TAB Take for systolic blood pressure > 185 and/or diastolic blood pressure > 105. Prov: YOGESH LAROSE DO 05/21/18 NIHSS Stroke Scale NIH Stroke Scale: NIH Stroke Scale Response (Comments) Value Level of Consciousness: 0 Alert/Responsive 0 LOC Questions: 0 Answers both correctly 0 LOC Commands: 0 Performs both tasks 0 Best Gaze: 0 Normal 0 Visual: 0 No visual loss 0 Facial Palsy: 0 Normal, symmetrical 0 Motor - Left Arm 0 No drift 0 Motor - Right Arm 0 No drift 0 Motor - Left Leg 0 No drift 0 Motor: Right Leg 0 No drift 0 Limb Ataxia: 0 Absent 0 Sensory: 0 No loss 0 Best Language: 0 Normal 0 Dysathria: 0 Normal 0 Extinction and Inattention: 0 Normal 0 Total 0 Problem Qualifiers Primary Impression: Headache Headache type: unspecified Headache chronicity pattern: acute headache Intractability: not intractable Qualified Codes: R51 - Headache YOGESH LAROSE DO May 21, 2018 05:08
[2018-05-21 05:14] LABS: ALBUMIN 3.5 g/dL (3.4-5.0); ALBUMIN/GLOBULIN RATIO 0.8 (1.0-1.7); MAGNESIUM 2.3 mg/dL (1.8-2.4); TOTAL BILIRUBIN 0.8 mg/dL (0.2-1.0); TOTAL PROTEIN 7.9 g/dL (6.4-8.2)
--- NOTE | 2018-05-21 05:21 | RAD ---
INDICATION: headache, dizziness COMPARISON: None. TECHNIQUE: Axial CT images obtained through the head without intravenous contrast. One or more of the following individualized dose reduction techniques were utilized for this examination: 1. Automated exposure control; 2. Adjustment of the mA and/or kV according to patient size; 3. Use of iterative reconstruction technique. FINDINGS: No intracranial hemorrhage. No midline shift. Basal cisterns patent. Ventricles and sulci are unremarkable. No acute osseous abnormality. Orbits and paranasal sinuses unremarkable. IMPRESSION: 1. No acute intracranial hemorrhage. Electronically signed by: Jacky Baeza MD (05/21/2018 5:17 AM) [facility]
[2018-05-21] MEDS ORDERED: CLON0.1T PO (05:25)
[2018-05-21 05:36] VITALS: BP 158/95
--- NOTE | 2018-05-21 08:19 | EKG ---
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
== END 2018-05-21 05:50 | disposition home or self-care (01) ==
LOC: ER 03:45
DX: R51 Headache (principal); R42 Dizziness and giddiness; I16.0 Hypertensive urgency
CPT/HCPCS: 36415; 70450; 80053; 82553; 83735; 84484; 85025; 93005; 96361; 96374; 96375; 99284; J1100; J1200; J1885; J2765; J3490; J7030